=== PATIENT | female | born 1960 | race Caucasian/White ===

== ENCOUNTER 2019-04-07 13:55 | Day surgery (SDC) | payer OTHER ==
[~2019-04-07] VITALS: Ht 162.6 cm; Wt 93.0 kg
[~2019-04-07 13:55] MED LIST: ARIP5TAB14 PO; ATOR40TA68 PO; DULO60CA59 PO; GLIP5TAB13 PO; IBUP-1545 PO; MIRT30TA5 PO; MTF1000T PO; OMEP20CA16 PO
[2019-04-07 14:35] VITALS: Ht 162.6 cm; Wt 93.0 kg
[2019-04-07] MEDS ORDERED: QUIN20TA23 PO (14:45)
[2019-04-07] MEDS ORDERED: METO-336 PO (14:45)
[2019-04-07] MEDS ORDERED: CLON-379 PO (14:45)
[2019-04-07] MEDS ORDERED: HYDR25TA6 PO (14:45)
[2019-04-07 15:10] VITALS: BP 115/66; PULSE 73; RESP 18
--- NOTE | 2019-04-07 15:21 | PREAC ---
Date/Time of Note Date/Time of Note DATE: 04/07/19 TIME: 15:20 Anesthesia Eval and Record Evaluation Time Pre-Procedure Interview DATE: 04/07/19 TIME: 15:20 Age 59 Sex female NPO: 8 hrs Preoperative diagnosis SCREENING Planned procedure COLONOSCOPY WITH BIOPSIES Past Medical History Past Medical History: Includes Cardio: HTN, Dyslipidemia Endo: Diabetes GI: Obesity, Other (CIRRHOSIS) Surgery & Anesthesia Issues No known issue Meds Anticoagulation: No Beta Daniel within 24 hr: No Reason Beta Daniel not given: Pt. not on B-Daniel Reported Medications Clonidine Hcl* (Clonidine Hcl*) 0.1 Mg Tab, 0.1 MG PO Q8, TAB 04/07/19 Metoprolol Succinate* (Toprol XL*) 100 Mg Tab.sr.24h, 100 MG PO DAILY, #30 TAB 04/07/19 Hydrochlorothiazide* (Hydrochlorothiazide*) 25 Mg Tab, 25 MG PO DAILY, #30 TAB 04/07/19 Quinapril Hcl (Quinapril Hcl) 20 Mg Tablet, 20 MG PO DAILY, #30 TAB 04/07/19 Omeprazole* (Omeprazole*) 20 Mg Capsule.dr, 20 MG PO DAILY, #30 CAP 01/07/19 Atorvastatin* (Atorvastatin*) 40 Mg Tablet, 40 MG PO QHS, #30 TAB 01/07/19 Ibuprofen* (Ibuprofen*) 800 Mg Tab, 800 MG PO Q6H PRN for PAIN, TAB 01/07/19 Glipizide* (Glipizide*) 5 Mg Tablet, 5 MG PO DAILY, TAB 01/07/19 Metformin* (Glucophage*) 1,000 Mg Tablet, 1000 MG PO DAILY, #30 TAB 01/07/19 Discontinued Reported Medications Duloxetine Hcl* (Duloxetine Hcl*) 60 Mg Capsule.dr, 60 MG PO DAILY, #30 CAP 01/07/19 Mirtazapine* (Mirtazapine*) 30 Mg Tablet, 30 MG PO HS, TAB 01/07/19 Aripiprazole* (Abilify*) 5 Mg Tab, 5 MG PO DAILY, #30 TAB 01/07/19 Meds reviewed: Yes Allergies Coded Allergies: vancomycin (Verified Allergy, Intermediate, 01/06/19) rash Allergies Reviewed: Yes Labs/Studies Labs Reviewed: Reviewed by anesthesiologist test: N/A Pre-procedure Exam Last vitals Vital Signs Date Temp Pulse Resp B/P (MAP) Pulse Ox O2 O2 Flow FiO2 Time Delivery Rate 04/07/19 98.6 73 18 115/66 95 Room Air 15:10 (82) Airway: Adequate mouth opening, Adequate thyromental dist Mallampati: Mallampati II Teeth: Normal Lung: Normal Heart: Normal ASA Physical Status ASA physical status: 3 Emergency: None Planned Anesthetic General/MAC: MAC Planned Pain Management Parenteral pain med Pre-operative Attestations Prior to commencing anesthesia and surgery, the patient was re-evaluated, there was verification of: *The patient's identity *The results of appropriate recent lab work and preoperative vital signs *The above evaluation not changing prior to induction *Anesthetic plan, risk benefits, alternative and complications discussed with pa tient/family; questions answered; patient/family understands, accepts and wishes to proceed. Jc Massey M.D. April 07, 2019 15:21
[2019-04-07] MEDS ORDERED: PROPOFOL 40 ML ONE (15:31)
[2019-04-07] MEDS ORDERED: LIDOCAINE 100 MG SYRINGE ONE (15:31)
--- NOTE | 2019-04-07 15:47 | PAC ---
Date/Time of Note Date/Time of Note DATE: 04/07/19 TIME: 15:47 Post-Anesthesia Notes Post-Anesthesia Note Last documented vital signs Vital Signs Date Temp Pulse Resp B/P (MAP) Pulse Ox O2 O2 Flow FiO2 Time Delivery Rate 04/07/19 98.6 73 18 115/66 95 Room Air 15:10 (82) Activity: WNL Respiratory function: WNL Cardiovascular function: WNL Mental status: Baseline Pain reasonably controlled: Yes Hydration appropriate: Yes Nausea/Vomiting absent: Yes Jc Massey M.D. April 07, 2019 15:47
[2019-04-07] MEDS ORDERED: MEPERIDINE 25 MG INJ IV PRN (16:00)
[2019-04-07] MEDS ORDERED: IPRATROPIUM (NEB) 0.5 MG/2.5 ML AMP HHN PRN (16:00)
[2019-04-07] MEDS ORDERED: ALBUTEROL 0.083% (NEB) 2.5 MG/3 ML AMP HHN PRN (16:00)
[2019-04-07] MEDS ORDERED: HYDROmorphONE 1 MG/5 ML IV SYRINGE IV PRN ×3 (16:00)
[2019-04-07] MEDS ORDERED: FENTAnyl 50 MCG/ML VIAL IV PRN ×3 (16:00)
[2019-04-07] MEDS ORDERED: ONDANSETRON 4 MG INJ IV PRN (16:00)
[2019-04-07] MEDS ORDERED: LABETALOL HCL 20MG INJ IV PRN (16:00)
[2019-04-07] MEDS ORDERED: OXYCODONE/ACETAMINOPHEN (5/325) TAB PO PRN ×2 (16:00)
[2019-04-07] MEDS ORDERED: DIPHENHYDRAMINE 50 MG INJ IV PRN (16:00)
[2019-04-07] MEDS ORDERED: TRIMETHOBENZAMIDE 100 MG/ML VIAL IM PRN (16:00)
[2019-04-07] MEDS ORDERED: MIDAZOLAM 1 MG/ML 2 ML INJ IV PRN (16:00)
[2019-04-07] MEDS ORDERED: EPHEDrine SULFATE 50 MG/5 ML SYG IV PRN (16:00)
[2019-04-07] MEDS ORDERED: hydrALAzine 20 MG INJ IV PRN (16:00)
[2019-04-07 16:22] VITALS: BP 95/53; PULSE 67; RESP 18
== END 2019-04-07 17:09 | disposition home or self-care (01) ==
LOC: GIL 13:55
PROVIDERS: ATTEND Internal Medicine Gastroenterology
DX: Z12.11 Encounter for screening for malignant neoplasm of colon (principal); K64.8 Other hemorrhoids; E11.9 Type 2 diabetes mellitus without complications; Z79.84 Long term (current) use of oral hypoglycemic drugs; I10 Essential (primary) hypertension
CPT/HCPCS: 45378; 82962; J2001; Z7610